=== PATIENT | female | born 2000 | race Asian ===

== ENCOUNTER 2022-01-27 23:44 | Emergency (ER) | payer MEDICAID ==
[~2022-01-27] VITALS: Ht 157.5 cm; Wt 57.9 kg
[2022-01-28 00:39] VITALS: BP 141/87
[2022-01-28] MEDS ORDERED: IBUP-2029 MT (03:55)
== END 2022-01-28 04:18 | disposition home or self-care (01) ==
LOC: ER 23:44
DX: M25.511 Pain in right shoulder (principal); V43.62XA Car passenger injured in collision with other type car in traffic accident, initial encounter; Y93.89 Activity, other specified; Y92.411 Interstate highway as the place of occurrence of the external cause
CPT/HCPCS: 73030; 81025; 99283